=== PATIENT | male | born 1950 | race Caucasian/White ===

== ENCOUNTER 2024-03-27 18:04 | Inpatient (IN) | payer MEDICARE, OTHER, SELFPAY ==
[2024-03-27] VITALS (7 sets, daily range): BP systolic 113–131; BP diastolic 60–81; PULSE 67–70; BMI 22.1; BMI 15.5
--- NOTE | 2024-03-27 12:39 | ED.GENMED ---
History of Present Illness
General
Chief Complaint: Dizziness
Source: patient
Exam Limitations: none
Time Seen by Provider: 03/27/24 12:15
History of Present Illness
History of Present Illness:
See MDM
Past History
Past History
ED Past Medical History: CAD and HTN
ED Past Surgical History: Cardiac
Social History
Tobacco: Non-smoker
Alcohol: None
Phy Exam
Physical Exam
Physical Exam:
See MDM
Course
Orders/Labs/Results
Orders:
Orders
03/27/24 11:44
ECG [Electrocardiogram (*1)] Urgent
Reason for Study: Vertigo / Dizzy
03/27/24 11:45
EKG- Treatment ONCE
03/27/24 12:34
0.9% Sodium Chloride 1000 ml [Nss] 1,000 ml IV BOLUS
diazePAM [Valium Injection] 2 mg IV NOW STA
03/27/24 13:02
Complete Blood Count/With Diff Urgent
Comprehensive Metabolic Panel Urgent
Abnormal Lab Results
03/27/24
13:02
WBC 13.1 H 10^3/uL
(4.8-10.8)
MCH 31.4 H pg
(27.0-31.0)
RDW 16.0 H %
(11.5-14.5)
MPV 10.7 H fL
(7.4-10.4)
Abs Immat Gran (auto) 0.1 H 10^3/uL
(0-0.05)
Absolute Neuts (auto) 9.2 H 10^3/uL
(1.4-6.5)
Absolute Monos (auto) 0.8 H 10^3/uL
(0.1-0.6)
BUN 32 H mg/dl
(9-20)
Creatinine 0.6 L mg/dL
(0.7-1.3)
Glucose 252 H mg/dl
(70-99)
Calcium 10.5 H mg/dl
(8.4-10.2)
03/27/24 13:02
03/27/24 13:02
Vital Signs
Initial and Last Documented VS:
Initial Vital Signs
Temp Pulse Resp BP Pulse Ox
98.5 F 101 20 113/66 96
03/27/24 11:41 03/27/24 11:41 03/27/24 11:41 03/27/24 11:41 03/27/24 11:41
Last Documented Vital Signs
Temp Pulse Resp BP Pulse Ox
98.5 F 101 20 128/78 96
03/27/24 11:41 03/27/24 11:41 03/27/24 11:41 03/27/24 14:00 03/27/24 14:00
MDM/Problems Addressed
Differential Diagnosis Includes:
HPI and MDM Narrative:
73-year-old male presenting for evaluation of persistent dizziness. Patient states vertigo started in October. Since then he was getting vestibular therapy. He had a 6-week episode where he was symptom-free. Symptoms started again last week.
Since that he has been taking meclizine again and still receiving vestibular therapy with no relief. He states he had a CT of his head in October when this all started but has never had an MRI yet
On exam, patient does have horizontal nystagmus to the left but finger-nose within normal limits. Will give dose of Valium and obtain basic blood work. If patient still symptomatic, will admit for further evaluation
Physical exam
General: Well appearing and non-toxic
HEENT: protecting airway. Horizontal nystagmus to the left
Neck: appears supple
CV: No evidence of cyanosis. Regular rate and rhythm
Resp: No accessory muscle use
Abd: Non-distended
Extremities: No deformities
Neuro: alert. Normal finger-nose bilaterally
Psych: Normal affect
Skin: Intact
Problems Addressed including Acute and Chronic Conditions affecting care:
1. Vertigo
Acuity: acute
Prognosis: stable
Details: It is difficult to reproduce the vertigo. Will give dose of Valium. If still symptomatic after reassessment, will admit for possible MRI
2. Hyperglycemia
Acuity: acute on chronic
Prognosis: stable
Details: Pt given IVF. No evidence of DKA
Updates
mild hyperglycemia noted on blood work. Patient is diabetic. Likely not the source of vertigo. After IV fluids and IV Valium, patient feeling somewhat better but still too symptomatic to go home
Differential Diagnosis (but not limited to): Peripheral vertigo, central vertigo, stroke
Testing considered: MRI brain
Drug therapy (if applicable): OTC meds, please see d/c instruction regarding Rx drugs
Amount and/or Complexity of Data Reviewed
Clinical info obtained from: Patient
External data reviewed: N/A
Labs I independently reviewed (but not limited to): Hyperglycemia
Radiology: N/A
Pulse Ox: not hypoxic
EKG independently reviewed: Sinus rhythm, left axis, no STEMI
Veterinary Anatomist: sinus rhythm
Critical Care: N/A
Risk of Complication:
Social Determinants of health: Good social support
Discussed with other providers: Hospitalist
Escalation of Care includes Admit/Obs: Given the persistent dizziness and failing outpatient therapy, will admit
Occasional wrong word or 'sound a like' substitutions may have occurred due to the inherent limitations of voice recognition software. Read the chart carefully and recognize, using context, where substitutions have occurred.
*Critical Care Note
Total Time (30-74mins, 75-104mins- exclusive of procedures): Not Applicable
ED Attending Note
-
Portions of this chart may have been created with voice recognition software.� Occasional wrong word or��sound alike� substitutions may have occurred due to the inherent limitations of voice recognition software.
Discharge Plan
Departure
Patient Disposition: Admit
Date of Disposition: 03/27/24
Time of Disposition: 14:45
Admit to: Med/Surg
Presentation/result/management discussed w/ accepting MD/DO: Hospitalist
Discharge Problem:
Vertigo, Hyperglycemia
Prescriptions:
No Action
venlafaxine [Effexor XR] 150 MG capsule,extended release 24hr
150 mg PO DAILY
omeprazole 20 MG capsule,delayed release(DR/EC)
20 mg PO DAILY
fenofibrate 160 MG tablet
160 mg PO DAILY
exenatide microspheres [Bydureon] 2 MG/0.65 ML pen injector
2 mg SQ SA
venlafaxine 75 MG capsule,extended release 24hr
75 mg PO DAILY
cyanocobalamin (vitamin B-12) 1,000 MCG tablet
1,000 mcg PO DAILY
clopidogrel 75 MG tablet
75 mg PO DAILY
lisinopril 10 MG tablet
10 mg PO DAILY
rosuvastatin [Crestor] 40 MG tablet
40 mg PO DAILY
fish oil-dha-epa 1 EACH capsule
1 ea PO DAILY
cholecalciferol (vitamin D3) 2,000 UNITS tablet
2,000 unit PO DAILY
Referrals:
Derek Gonzalez DO [Family Provider] -
Interventions
Interventions:
*Risk Screen - Suicide Last Done: 03/27/24 12:47
*General Assessment Last Done: 03/27/24 12:47
*Neglect/Abuse Screening Last Done: 03/27/24 12:47
*ED COVID-19 Vaccine History Last Done: 03/27/24 12:47
ED- Neurological Assessment Last Done: 03/27/24 13:13
Discharge Date and Time
Print Language: KOSOVAN
[2024-03-27] MEDS: VALIUM INJECTION 2 MG IV (12:56)
[2024-03-27] MEDS: NSS 1000 IV (12:57)
[2024-03-27 13:16] LABS: % Basophils 0.9 % (0-2); % Eosinophils 0.9 % (0-6); % Immature Granulocytes 0.4 % (0-0.5); % Lymphocytes 21.8 % (20.5-51.1); % Monocytes 5.8 % (1.7-9.3); % Neutrophils 70.2 % (42.2-75.2); Absolute Basophils 0.1 10^3/uL (0-0.2); Absolute Eosinophils 0.1 10^3/uL (0-0.7); Absolute Immature Granulocytes 0.1 10^3/uL (0-0.05); Absolute Lymphocytes 2.9 10^3/uL (1.2-3.4); Absolute Monocytes 0.8 10^3/uL (0.1-0.6); Absolute Neutrophils 9.2 10^3/uL (1.4-6.5); Hematocrit 48.8 % (39.0-52.0); Hemoglobin 16.8 g/dL (13.0-18.0); Mean Corp Hgb Conc. 34.4 g/dL (33.0-37.0); Mean Corpuscular Hgb 31.4 pg (27.0-31.0); Mean Corpuscular Volume 91.2 fL (80.0-94.0); Mean Platelet Volume 10.7 fL (7.4-10.4); Nucleated Red Blood Cells % 0 % (-); Platelet Count 247 10^3/uL (130-400); Red Blood Cell Count 5.35 10^6/uL (4.70-6.10); White Blood Cell Count 13.1 10^3/uL (4.8-10.8)
[2024-03-27 13:30] LABS: ALT (SGPT) 31 U/L (0-50); AST (SGOT) 33 U/L (17-59); Albumin 4.3 g/dl (3.5-5.0); Alkaline Phosphatase 65 U/L (38-126); Blood Urea Nitrogen 32 mg/dl (9-20); Calcium 10.5 mg/dl (8.4-10.2); Carbon Dioxide 26 mmol/L (22-30); Chloride 103 mmol/L (98-107); Estimated Creatinine Clearance 98 ml/min; Glucose 252 mg/dl (70-99); Sodium 137 mmol/L (135-145); Total Bilirubin 0.4 mg/dl (0.2-1.3); Total Protein 6.7 g/dl (6.3-8.2); eGFR > 60.00
--- NOTE | 2024-03-27 17:40 | HPS.HSE ---
Family Physician
-
Family Physician: Derek Gonzalez DO
Chief Complaint
-
Persistent vertigo.
History of Present Illness
Patient is a 73 years old male with history of CVA, hypertension, diabetes, complete heart block with pacemaker in place who presents to ED with persistent vertigo. Patient has intermittent vertigo and being treated with outpatient vestibular
therapy, although since past 7 to 10 days he has worsening of vertigo, falls, inability to drive and perform activities of daily living. Patient describes subjects been spinning around and recurrent falls secondary to ataxia. He has been able to
ambulate with cane. He denies any focal weaknesses. Denies any vision changes. Denies any chest pain or palpitations. He admits to taking Antivert at home with no improvement.
Medical History
Past Medical History
Past Medical History: Reports Arrhythmia, CVA, HTN and NIDDM
Past Surgical History: Reports Other (Pacemaker implantation)
Social History
Tobacco: Non-smoker
Alcohol: None
Personal:
Living: With Family
Family History
Family History: Not pertinent
Allergies / Home Medications
Allergies reflects when Allergies were last updated in [facility].
Home Medications with original date entered in [facility]
Allergy/Medication List:
Allergies
Allergy/AdvReac Type Severity Reaction Status Date / Time
No Known Allergies Allergy Unverified 03/27/24 11:41
Home Medications
fenofibrate 160 mg tablet 160 mg PO DAILY High Cholesterol 06/19/18
venlafaxine 150 mg capsule,extended release 24 hr (Effexor XR) 150 mg PO DAILY Mental Health 06/19/18
cholecalciferol (vitamin D3) 50 mcg (2,000 unit) tablet 2,000 unit PO DAILY Supplement 09/15/18
clopidogrel 75 mg tablet 75 mg PO DAILY Blood Clot Prevention/Tx 09/15/18
fish oil-dha-epa 1,200 mg-144 mg-216 mg capsule 1 ea PO DAILY Supplement 09/15/18
rosuvastatin 40 mg tablet (Crestor) 40 mg PO DAILY High Cholesterol 09/15/18
venlafaxine 75 mg capsule,extended release 24 hr 75 mg PO DAILY Mental Health 09/15/18
dapagliflozin propanediol 10 mg tablet (Farxiga) 10 mg PO DAILY Diabetes 03/27/24
ezetimibe 10 mg tablet 10 mg PO DAILY High Cholesterol 03/27/24
glimepiride 4 mg tablet 4 mg PO BID@0800,1700 Diabetes 03/27/24
lisinopril 2.5 mg tablet 2.5 mg PO DAILY Blood Pressure 03/27/24
semaglutide 1 mg/dose (4 mg/3 mL) subcutaneous pen injector (Ozempic) 1 mg SC TU Diabetes 03/27/24
tamsulosin 0.4 mg capsule 0.4 mg PO HS Urinary Issue 03/27/24
vitamin B complex 1 cap PO DAILY Supplement 03/27/24
Review of Systems
-
A 12 point ROS was completed and negative except as noted: Yes
Neurological: Reports See HPI
Physical Exam
Vital Signs
Vital Signs
Temp Pulse Resp BP Pulse Ox
98.5 F 101 20 128/76 94
03/27/24 11:41 03/27/24 11:41 03/27/24 11:41 03/27/24 16:00 03/27/24 16:58
Physical Exam
General: Well Developed, Well Nourished and No Apparent Distress
HEENT: NormoCephalic, Moist mucous membranes and Atraumatic
Respiratory: Clear
Cardiac: S1/S2 and Regular Rhythm; No Murmur or Rub
GI: Soft, Non Tender, Non Distended and Normal Bowel Sounds; No Organomegaly
Rectal: Deferred by Provider
Musculoskeletal: No Clubbing, No Cyanosis and No Edema
Skin: No Rash
Neuro: Awake, Alert, Oriented, AO x 3, Nonfocal/grossly intact and Other (Horizontal nystagmus with rapid face to the left)
Laboratory Results
-
03/27/24 13:02
03/27/24 13:02
Laboratory Results
Total Bilirubin 0.4 mg/dl (0.2-1.3) 03/27/24 13:02
AST 33 U/L (17-59) 03/27/24 13:02
ALT 31 U/L (0-50) 03/27/24 13:02
Alkaline Phosphatase 65 U/L (38-126) 03/27/24 13:02
Impression/Plan
-
IMPRESSION:
Vertigo with concern for CVA
Conditions prior to admission:
Symptomatic heart block status post pacemaker placement 09/23.
CVA in December 2017 following Linq implant in June 2018.
Essential hypertension
Dyslipidemia
Type 2 diabetes
GERD
PLAN:
Presenting with persistent vertigo over 7 to 10 days
Ataxia.
Exam with no focal findings other than mild horizontal nystagmus with right face to the left.
Differential diagnosis acute versus subacute CVA versus peripheral vertigo.
Admitted for further evaluation
Neurology consultation
Serial neurochecks
CT scan of the head
MRI of the brain after pacemaker clearance.
Update hemoglobin A1c
Lipid panel.
Continue Plavix for now
Continue telemetry monitoring.
Check orthostatic vitals
Physical therapy evaluation.
While CVA workup, consider symptomatic treatment including vestibular rehab, benzodiazepines, Antivert.
Essential hypertension
Goal normotension.
Observe BP on preadmission regimen including lisinopril.
Type 2 diabetes
Update hemoglobin A1c.
Basal bolus protocol.
Glimepiride.
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
BPH continue Flomax
Continue with laxatives
Full code
DVT prophylaxis with Lovenox
--- NOTE | 2024-03-27 20:10 | PTCARENOTE ---
Addendum entered by Rupal Aguilar RN 03/27/24 23:17:
Telemetry = occ A pacing
Original Note:
Pt received from previous shift in bed as new admission. AAOx3, [facility] w/L hearing aid. Passed Swallow Screen/NIHSS/Neuro check completed. NIHSS = 2 (slight facial droop/limb ataxia), neuro check WNL. Pt reports intermittent dizziness, denies at
present. Admission and assessment completed. Oriented to surroundings and plan of care discussed. Boxed lunch provided, pt consumed 100%. Instructed to ring for assist when OOB, verbalizes understanding. Urinal provided. Knee high SCDs placed.
Call orozco within reach. Plan of care ongoing.
[2024-03-27] MEDS: FARXIGA 10 MG PO (20:31)
[2024-03-27] MEDS: PLAVIX 75 MG PO (20:31)
[2024-03-27] MEDS: LOVENOX 40 MG SC (20:31)
[2024-03-27] MEDS: ZESTRIL 2.5 MG PO (20:32)
[2024-03-27 21:19] LABS: Glucose - Point of Care 144 mg/dl (70-99)
[2024-03-27] MEDS: FLOMAX 0.4 MG PO (21:56)
--- NOTE | 2024-03-27 23:31 | PTCARENOTE ---
Pt appears to be somewhat poor historian, after chart review historical data updated from external medical summary report.
[2024-03-28 03:26] VITALS: BP 114/64
[2024-03-28 07:36] LABS: Glucose - Point of Care 142 mg/dl (70-99)
[2024-03-28 07:40] LABS: HDL Cholesterol 31 mg/dl; LDL Cholesterol, Calculated 47 mg/dl; Total Cholesterol 102 mg/dl (50-199); Triglyceride 121 mg/dl (10-149); Very Low Density Lipoprotein 24 mg/dl (0-30)
[2024-03-28 07:45] VITALS: BP 139/62
[2024-03-28 08:27] LABS: Hepatitis C Antibody Negative (Negative)
[2024-03-28] MEDS: NOVOLOG FLEXPEN-LOW RESISTANCE SC (08:36)
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
[2024-03-28] MEDS: TRICOR 145 MG PO (08:53)
[2024-03-28] MEDS: EFFEXOR XR 75 MG PO (08:53)
[2024-03-28] MEDS: VITAMIN D3 (cholecalciferol) 50 MCG PO (08:53)
[2024-03-28] MEDS: ZESTRIL 2.5 MG PO (08:53)
[2024-03-28] MEDS: ZETIA 10 MG PO (08:53)
[2024-03-28] MEDS: EFFEXOR XR 150 MG PO (08:53)
[2024-03-28] MEDS: CRESTOR 40 MG PO (08:53)
[2024-03-28] MEDS: AMARYL 4 MG PO (08:54)
[2024-03-28] MEDS: PLAVIX 75 MG PO (08:54)
[2024-03-28] MEDS: FARXIGA 10 MG PO (08:54)
--- NOTE | 2024-03-28 09:12 | PTOTSP ---
SWATCH PASTER Acute Care Evaluation
Pt currently presents with oral, pharyngeal, and esophageal parameters that are within functional limits for safe PO intake of all solids and liquids. No overt s/s of penetration or aspiration observed at bedside.
Despite being fully oriented, pt also appears to have some reduced cognitive communication function as evidenced by pt's indication of receptive/expressive language difficulties as well as poor recall of medication list. Pt is also with a
significant hearing loss without amplification at this time (battery is ). Will await pt's bringing in hearing aid manufacturing laborer to ensure pt has adequate amplification for cognitive communication evaluation.
Recommendations:
- Continue with regular solids, thin liquids, meds as tolerated.
- General aspiration precautions.
- SWATCH PASTER to f/u to complete a cognitive linguistic evaluation once pt has a charged hearing aid.
[2024-03-28 10:27] VITALS: BP 139/79; BP 154/70; PULSE 68; O2SAT 96
[2024-03-28 11:06] VITALS: BP 134/75
[2024-03-28 11:14] LABS: Glycohemoglobin (HgbA1c) 7.7 % (4.0-5.6)
[2024-03-28 12:52] LABS: Glucose - Point of Care 216 mg/dl (70-99)
--- NOTE | 2024-03-28 13:30 | CM ---
Mr. Carmichael is a 73yo male admitted to with vertigo and concern for CVA. 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 More recently has begun having return of dizziness, inability to drive, nausea. He has
been going to an outpatient vestibular therapy program at [facility] and was doing well, but began having return of prior symptoms which caused him to present to the ED.
MRI to be done to r/o CVA.
Plan: CM to follow to assist with d/c planning. Anticipate discharge to home with ; will watch for possible home health needs.
PCP: Derek Gonzalez
Pharmacy: [facility]
[2024-03-28] MEDS: NOVOLOG FLEXPEN-LOW RESISTANCE 2 UNITS SC (13:40)
[2024-03-28 15:23] VITALS: BP 144/75
--- NOTE | 2024-03-28 15:54 | W.PN.HOSP.TC ---
Today's Communication/Plan
-
Complete workup for CVA pending MRI.
Physical therapy assessment
Symptomatic treatment for vertigo
Neurology input appreciated.
Assessment / Plan
Assessment / Plan
IMPRESSION:
Vertigo with concern for CVA
Conditions prior to admission:
Symptomatic heart block status post pacemaker placement 09/23.
CVA in December 2017 following Linq implant in June 2018.
Essential hypertension
Dyslipidemia
Type 2 diabetes
GERD
PLAN:
Presenting with persistent vertigo over 7 to 10 days
Ataxia.
Exam with no focal findings other than mild horizontal nystagmus with right face to the left.
Differential diagnosis acute versus subacute CVA versus peripheral vertigo.
Admitted for further evaluation
Neurology consultation
Serial neurochecks
CT scan of the head with no acute abnormalities
MRI of the brain after pacemaker clearance.
Update hemoglobin A1c 7.7
LDL 47 on statin
Continue Plavix for now
Continue telemetry monitoring.
Check orthostatic vitals
Physical therapy evaluation.
While CVA workup, consider symptomatic treatment including vestibular rehab, benzodiazepines, Antivert.
Essential hypertension
Goal normotension.
Observe BP on preadmission regimen including lisinopril.
Type 2 diabetes
Hemoglobin A1c 7.7
Basal bolus protocol.
Glimepiride.
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
BPH continue Flomax
Continue with laxatives
Full code
DVT prophylaxis with Lovenox
Anticipated Discharge: 24 - 48 hours
Subjective/Interval History
-
Date of Service: March 28, 2024
Objective Data
-
Vital Signs:
Vital Signs
Temp Pulse Resp BP Pulse Ox
98.2 F 62 18 144/75 95
03/28/24 15:23 03/28/24 15:23 03/28/24 15:23 03/28/24 15:23 03/28/24 15:23
I&O
03/27/24 03/28/24 03/29/24
06:59 06:59 06:59
Intake Total 240 / 240
Output Total 500 / 500 500 / 500
Balance -260 / -260 -500 / -500
Physical Exam
-
General: Well Developed and No Apparent Distress
HEENT: Normocephalic, Atraumatic and Moist Mucous Membranes
Respiratory: Clear to Auscultation
Cardiac: Regular Rhythm and S1/S2; Negative Murmur, Rub or Gallop
GI: Soft, Nontender, Nondistended and Normal Bowel Sounds; Negative Organomegaly
Rectal: Deferred by Provider
Musculoskeletal: No Clubbing, No Cyanosis and No Edema
Skin: Negative Rash
Neuro: Nonfocal/Grossly Intact
[2024-03-28 16:50] LABS: Glucose - Point of Care 160 mg/dl (70-99)
--- NOTE | 2024-03-28 17:10 | PTCARENOTE ---
Pt wants to leave AMA
--- NOTE | 2024-03-28 17:16 | PTCARENOTE ---
Contacted MD Chandler to advise pt wants to leave AMA, Form completed and pt made aware of the risks in leaving AMA and he still wanted to leave, Pt got himself dressed and bedolla dhis to pick him up at the main lobby. Transport called to take
down in WC.
== END 2024-03-28 17:31 | disposition left against medical advice (07) | DRG 149 ==
LOC: 4 EAST ACU 18:04
PROVIDERS: ADMITTING PHYSICIAN Internal Medicine; CONSULT PHYSICIAN Psychiatry & Neurology Neurology; EMERGENCY PHYSICIAN Student in an Organized Health Care Education/Training Program; FAMILY PHYSICIAN Family Medicine
DX: R42 Dizziness and giddiness (principal); I44.2 Atrioventricular block, complete; I10 Essential (primary) hypertension; E78.5 Hyperlipidemia, unspecified; E11.9 Type 2 diabetes mellitus without complications; N40.0 Benign prostatic hyperplasia without lower urinary tract symptoms; F17.290 Nicotine dependence, other tobacco product, uncomplicated; I25.10 Atherosclerotic heart disease of native coronary artery without angina pectoris; Z95.0 Presence of cardiac pacemaker; Z79.02 Long term (current) use of antithrombotics/antiplatelets; Z86.73 Personal history of transient ischemic attack (TIA), and cerebral infarction without residual deficits
CPT/HCPCS: 70450; 80053; 80061; 82962; 83036; 85025; 86803; 92610; 93005; 96361; 96374; 97163; 97166; 99285; 99406

== ENCOUNTER → 2024-05-16 11:18 | Outpatient (REF) | payer MEDICARE, OTHER, SELFPAY | LOC: RCS 11:18 | PROVIDERS: ATTENDING PHYSICIAN Internal Medicine; FAMILY PHYSICIAN Family Medicine | DX: I47.10 Supraventricular tachycardia, unspecified (principal); I35.1 Nonrheumatic aortic (valve) insufficiency; I77.810 Thoracic aortic ectasia | CPT/HCPCS: 93306 ==

== ENCOUNTER → 2024-05-18 13:23 | Outpatient (REF) | payer MEDICARE, OTHER, SELFPAY | LOC: MRI 13:23 | PROVIDERS: ATTENDING PHYSICIAN Family Medicine | DX: Z09 Encounter for follow-up examination after completed treatment for conditions other than malignant neoplasm (principal); H81.399 Other peripheral vertigo, unspecified ear; R47.89 Other speech disturbances | CPT/HCPCS: 70553; A9575 ==

== ENCOUNTER → 2025-04-16 07:46 | Outpatient (REF) | payer MEDICARE, OTHER, SELFPAY | LOC: RAD 07:46 | PROVIDERS: ATTENDING PHYSICIAN Family Medicine | DX: Z13.6 Encounter for screening for cardiovascular disorders (principal); F17.210 Nicotine dependence, cigarettes, uncomplicated; Z12.2 Encounter for screening for malignant neoplasm of respiratory organs | CPT/HCPCS: 71271; 76770 ==